=== PATIENT | male | born 1985 | race Caucasian/White ===

== ENCOUNTER 2019-06-21 09:39 | Emergency (ER) | payer BC, SELFPAY ==
--- NOTE | 2019-06-21 09:46 | ED.GENADULT ---
HPI - General Adult General Chief complaint: Abdominal Pain Stated complaint: anal pain/itch Time Seen by Provider: 06/21/19 09:57 Source: patient Mode of arrival: ambulatory Limitations: no limitations History of Present Illness HPI narrative: 33-year-old male patient [facility] with complaints of anal itching for the past 2 weeks. Patient states he is tried some [id number] Preparation H as well as some [id number] pinworm medication. Patient states it has not been helping. Patient denies any pain with bowel movements and states that it actually feels better because it feels like it is itching inside . Patient denies any blood in his stool that he is aware of. Patient states it did start that the itching was just at night but now it is all the time. Denies any abdominal pain, nausea, vomiting or diarrhea. Patient states he does tend to sweat a lot. Patient states he has been trying to clean himself and taking 2 showers a day as well as using wet wipes when he goes to the bathroom. Related Data Allergies Allergy/AdvReac Type Severity Reaction Status Date / Time No Known Allergies Allergy Unverified 06/21/19 09:47 Review of Systems Review of Systems: Narrative: CONSTITUTIONAL: Denies fever, chills, or sweats. EYES: Denies visual changes, redness, or discharge. ENT: Denies rhinorrhea, congestion, sore throat, or otalgia. CARDIOVASCULAR: Denies chest pain, palpitations, or edema. RESPIRATORY: Denies cough or dyspnea. GASTROINTESTINAL: Denies abdominal pain, nausea, vomiting, or diarrhea. GENITOURINARY: Denies dysuria or hematuria. SKIN: Denies rash or itching. Positive anal itching x2 weeks. MUSCULOSKELETAL: Denies back pain, joint pain, or myalgia. NEUROLOGIC: Denies headache, numbness, or weakness. PSYCHIATRIC: Denies anxiety or depression. [facility] Family History Family History Grandparent Family history of Parkinson's disease Carcinoma of colon Malignant neoplasm of prostate Family history of malignant neoplasm of breast Diabetes mellitus Mother Family history of malignant neoplasm of breast in first degree relative Other Family history of alcoholism Hypertension Social History Social History Smoking status: Never smoker Alcohol intake: current Comments At the time of my signature I agree with nursing past medical history, surgical, social, and family history. There is no relevant family history pertinent to the presenting complaint. Exam Narrative: Exam Narrative: GENERAL: Well-appearing, well-nourished, and in no acute distress. HEAD: Normocephalic, atraumatic. EYES: PERRLA and EOMI. ENT: Nares clear, no rhinorrhea or epistaxis. Mucous membranes moist. NECK: Supple. No lymphadenopathy CHEST: Clear to auscultation. No respiratory distress. HEART: Regular rate and rhythm. No murmur heard. Normal peripheral pulses. ABDOMEN: Soft, nontender, nondistended, normal active bowel sounds. RECTAL: No obvious rash noted around the rectum area. There is a small skin tag noted to the 1:00 area of the rectum. A digital rectal exam was performed. There does seem to be some internal hemorrhoids noted on palpation to the 1:00 area of the rectum. EXTREMITIES: Normal range of motion. No edema. SKIN: Warm, dry, no rash. NEURO: No focal deficits. Alert and oriented x3. Course Vital Signs Vital signs: Vital Signs Temperature 36.5 C 06/21/19 09:48 Pulse Rate 64 06/21/19 09:48 Respiratory Rate 20 06/21/19 09:48 Blood Pressure 131/88 06/21/19 09:48 Pulse Oximetry 99 06/21/19 09:48 Temperature 36.5 C 06/21/19 09:48 Pulse Rate 64 06/21/19 09:48 Respiratory Rate 20 06/21/19 09:48 Blood Pressure 131/88 06/21/19 09:48 Pulse Oximetry 99 06/21/19 09:48 Vital signs reviewed. The patient has been informed that they may have pre-hypertension or Hyperte
[2019-06-21 09:48] VITALS: BP 131/88; PULSE 64; RESP 20; TEMP 36.5; O2SAT 99
== END 2019-06-21 10:08 | disposition home or self-care (01) ==
PROVIDERS: Emergency Provider Nurse Practitioner Family; PCP Family Medicine
DX: K64.9 Unspecified hemorrhoids (principal)
CPT/HCPCS: 99213; G0463

== ENCOUNTER 2020-05-15 11:51 | Outpatient (NON) | payer BC, SELFPAY ==
[2020-05-15 23:32] LABS: SARS-CoV-2 RNA PCR Positive
== END 2020-05-15 11:52 ==
LOC: ANHCOVIDDT 11:52
PROVIDERS: PCP Family Medicine; Visit Provider Family Medicine
DX: U07.1 COVID-19 (principal)
CPT/HCPCS: C9803; U0003

== ENCOUNTER → 2021-10-09 08:41 | Outpatient (CLI) | payer BC, SELFPAY ==
--- NOTE | ~2021-10-09 | XR_ITS ---
EXAMINATION: XR lumbar spine min 4V DATE: 10/09/2021 09:43 INDICATION: Chronic low back pain. TECHNIQUE: 5 views of lumbar spine were obtained. COMPARISON: None. FINDINGS: Bone alignment is normal. Vertebral body heights and intervertebral disc heights are normal . There is multilevel mild facet joint osteoarthritis. IMPRESSION: 1. Mild lumbar facet joint osteoarthritis. Reviewed, dictated and finalized at location A.
--- NOTE | ~2021-10-09 | XR_ITS ---
EXAMINATION: XR cervical spine 4-5V DATE: 10/09/2021 09:43 INDICATION: Chronic neck pain. TECHNIQUE: 5 views of cervical spine including standing views were obtained. COMPARISON: None. FINDINGS: There is 11 degrees levoscoliosis of cervicothoracic spine. There is mild kyphosis of cervi jany spine. Vertebral body heights are normal. There is mildly decreased disc height at C4-C5 and C5-C 6. The facet joints are unremarkable. IMPRESSION: 1. Mild cervical spondylosis. 2. Cervicothoracic levoscoliosis. Reviewed, dictated and finalized at location A.
== END ==
PROVIDERS: PCP Family Medicine; Visit Provider Family Medicine
DX: M47.816 Spondylosis without myelopathy or radiculopathy, lumbar region (principal); M47.812 Spondylosis without myelopathy or radiculopathy, cervical region; M41.9 Scoliosis, unspecified
CPT/HCPCS: 72050; 72110

== ENCOUNTER 2024-08-10 07:17 | Emergency (ER) | payer BC, SELFPAY ==
--- OUTSIDE RECORDS SUMMARY | 2024-08-10 07:22 | XMS_ITS | Clinical Summary ---
Author Organization [facility] Address [address] [address] Care Team Providers Care Research Phlebotomist Name Role Phone Unavailable Primary Care Provider Unavailabl e Source Comments [facility],non-owned Affiliates and Associated Physician Practices is amultiple site organization consisting of ambulatory clinics and hospital sitesin [place], [place], [place] and [place]. This disclosure is being madepursuant to the Care Everywhere program and may not contain all information available regarding this patient. Last updated 18.[facility] Immunizations Name Administration Dates Next Due INFLUENZA VACCINE, QUADR. (F LUZONE; FLULAVAL; FLUARIX; AFLURIA QUADRIVALENT; 6MO+), 0.5 ML (IIV4) 02/22/2019 TDAP (7yrs+) 02/22/2019 Social History Tobacco Use Types Packs/Day Years Used Date Smoking Tobacco: Never Assessed Sex and Gender Information Value Date Recorded Sex Assigned at Not on file Gender Identity Not on file Sexual Orientation Not on file Plan of Treatment Health Maintenance Due Date Last Done Comments HIV SCREENING 2000 HEPATITIS C SCREENING 08/20/2003 HEPATITIS B VACCINE (1 of 3 - 19+ 3-dose series) 2004 COVID-19 VACCINE (2023-2 5 season) 2024 INFLUENZA VACCINE (#1) 2024 02/22/2019 DEPRESSION SCREENING 05/09/2024 DTAP/TDAP/TD VACCINES (2 - T d or Tdap) 02/22/2029 02/22/2019 ZOSTER VACCINE (1 of 2) 08/25/2035 HIB VACCINE Aged Out No longer eligi ble based on patient's age to complete this topic HPV VACCINE Aged Out No longer eligi ble based on patient's age to complete this topic MENINGOCOCCAL (Group B) VACC INE SHARED DECISION-MAKING Aged Out No longer eligibl e based on patient's age to complete this topic MENINGOCOCCAL GROUPS A/C/Y/W VACCINE Aged Out No longer eligible b ased on patient's age to complete this topic PNEUMOCOCCAL VACCINE Aged Out No long er eligible based on patient's age to complete this topic
[2024-08-10 07:27] VITALS: BP 142/96; PULSE 80; RESP 16; TEMP 36.7; O2SAT 100
--- NOTE | 2024-08-10 07:38 | ED_ITS ---
HPI - General Adult General Chief complaint: Nausea/Vomiting/Diarrhea Stated complaint: n/v/d, rapid weight loss, YL Time Seen by Provider: 08/10/24 07:20 History of Present Illness HPI narrative: 38-year-old male presents to the emergency department for evaluation for diarrhea and weight loss. Patient has also developed recent nausea and vomiting. Patient has been taking semaglutide. Patient took a break from the medication and the symptoms did begin to improve. When patient restarted the medication the symptoms worsened again. Related Data Allergies Allergy/AdvReac Type Severity Reaction Status Date / Time No Known Allergies Allergy Verified 08/10/24 07:18 Review of Systems 2 Review of Systems: All systems reviewed & are unremarkable except as noted in HPI and below PMFSH Family History Family History Grandparent Family history of Parkinson's disease Carcinoma of colon Malignant neoplasm of prostate Family history of malignant neoplasm of breast Diabetes mellitus Mother Family history of malignant neoplasm of breast in first degree relative Other Family history of alcoholism Hypertension Social History Social History Smoking status: Never smoker Alcohol intake: current Exam 2 Narrative: APPEARANCE: Well appearing, no pain, no distress, well-nourished. HEAD: normocephalic, atraumatic. EYES: PERRLA/EOMI, conjunctivae clear. NOSE: Normal no drainage EARS:TMS clear with good light reflex. THROAT: Pharynx clear, no exudate. NECK: Supple. No adenopathy, no masses. RESPIRATORY: Airway patent, respirations nonlabored. Clear to auscultation bilaterally, no rales, rhonchi, wheezing. CARDIOVASCULAR: Regular rate and rhythm without murmurs rubs or gallops. ABDOMINAL: Soft, nontender, nondistended, normal bowel sounds MUSCULOSKELETAL: Moves all extremities. Strength/ROM intact, No edema, No calf tenderness. NEURO: Alert. Cranial nerves II through XII intact. Grossly intact SKIN: Warm, dry. Normal Color Course Vital Signs Vital signs: Vital Signs Temperature 98.0 F 08/10/24 07:27 Pulse Rate 80 08/10/24 07:27 Respiratory Rate 16 08/10/24 07:27 Blood Pressure 142/96 H 08/10/24 07:27 Pulse Oximetry 100 08/10/24 07:27 Oxygen Delivery Room Air 08/10/24 07:27 Temperature 98.0 F 08/10/24 07:27 Pulse Rate 68 08/10/24 09:01 Respiratory Rate 15 08/10/24 09:01 Blood Pressure 119/76 08/10/24 09:01 Pulse Oximetry 94 08/10/24 09:01 Oxygen Delivery Room Air 08/10/24 07:27 Medical Decision Making [facility] Narrative Medical decision making narrative: 38-year-old male presents emergency department for evaluation for intermittent nausea vomiting diarrhea. Patient is on semaglutide and I suspect this is the underlying etiology for his symptoms. Patient is currently afebrile with no leukocytosis and hemoglobin of 18. Patient has no significant abnormalities on his CMP UA was negative for infection. Patient was advised to follow a clear liquid diet for the next 1-3 days. Patient is provided Reglan for nausea control. Patient was advised to stop the semaglutide. Differential Diagnosis Differential Diagnosis: Colitis, diverticulitis, enteritis, viral etiology, adverse reaction to medication Vital Signs Vital Signs: Vital Signs Temperature 98.0 F 08/10/24 07:27 Pulse Rate 80 08/10/24 07:27 Respiratory Rate 16 08/10/24 07:27 Blood Pressure 142/96 H 08/10/24 07:27 Pulse Oximetry 100 08/10/24 07:27 Oxygen Delivery Room Air 08/10/24 07:27 Temperature 98.0 F 08/10/24 07:27 Pulse Rate 68 08/10/24 09:01 Respiratory Rate 15 08/10/24 09:01 Blood Pressure 119/76 08/10/24 09:01 Pulse Oximetry 94 08/10/24 09:01 Oxygen Delivery Room Air 08/10/24 07:27 Lab Data Lab results reviewed: Yes I reviewed the patient's lab results. 08/10/24 07:45 08/10/24 07:45 Labs: Lab Results 08/10/24 08/10/24 Range/Units 07:45 07:59 WBC 6.9 (4.5-10.0) K/mm3 RBC 5.80 (4.6-6.20) M/mm3 Hgb 18.0 (14.0-18.0) g/dL Hct 51.7 (42.0-52.0) % MCV 89.1 (80-100) fl MCH 31.0 (26-34) pg MCHC 34.8 (32-36) g/dl RDW 11.7 (11.5-14.5) % Plt Count 235 (150-375) k/mm3 MPV 10.5 H (7.4-10.4) fl Immature Gran % (Auto) 0.3 (0-0.5) % Neut % (Auto) 74.0 H (45.5-73.1) % Lymph % (Auto) 17.2 L (18.3-44.2) % [place] % (Auto) 5.9 (2.6-8.5) % Eos % (Auto) 2.0 (0-4.4) % Baso % (Auto) 0.6 (0.2-1.2) % Lymph # (Auto) 1.19 (0.9-3.2) K/mm3 [place] # (Auto) 0.4 (0.1-0.6) K/mm3 Eos # (Auto) 0.1 (0-0.3) K/mm3 Baso # (Auto) 0.0 (0.0-0.1) K/mm3 Abs Immat Gran (auto) 0.02 (0.00-0.031) K/mm3 Absolute Neuts (auto) 5.1 (1.3-6.7) K/mm3 Absolute Nucleated RBC 0.000 (0.0-0.012) K/mm3 Band Neutrophils % Not Reportable Nucleated RBC % 0.0 (0.0-0.2) % Atypical Lymphocytes Present Platelet Estimate Adequate (Adequate) Schistocytes None seen Sodium 139 (137-145) mmol/L Potassium 4.0 (3.4-5.0) mmol/L Chloride 99 (98-107) mmol/L Carbon Dioxide 30 (22-30) mmol/L Anion Gap 10 (4-12) mmol/L BUN 14 (9-20) mg/dL Creatinine 1.26 (0.7-1.3) mg/dL Estim Creat Clear Calc 90 ml/min Estimated GFR > 60 (59 - ) Glucose 101 (65-110) mg/dL Calcium 9.4 (8.4-10.2) mg/dL Total Bilirubin 0.7 (0.2-1.3) mg/dL AST 21 (17-59) U/L ALT 25 (6-50) U/L Alkaline Phosphatase 79 (38-126) U/L Total Protein 8.0 (6.3-8.2) g/dL Albumin 4.7 (3.5-5.1) g/dL Lipase 126 (23-300) U/L Urine Color Dark yellow (Yellow) Urine Appearance Clear (Clear) Urine pH 6.0 (5.0-9.0) Ur Specific [place] 1.030 (1.001-1.035) Urine Protein 1+ H (Negative) mg/dL Urine Glucose (UA) Negative (Negative) mg/dL Urine Ketones 1+ H (Negative) mg/dL Ur Blood (Man) Negative (Negative) Urine Nitrate Negative (Negative) Urine Bilirubin 1+ H (Negative) Urine Urobilinogen 1.0 (<2.0) mg/dL Leukocyte Esterase Rfl Negative (Negative) MRAY JO/UL Urine RBC 0-2 (0-2) /hpf Urine WBC 0-5 (0-3) /hpf Ur Squamous Epith Cells None seen (Few) /hpf Urine Bacteria None seen /hpf Urine Casts 0-2 C. difficile (PCR) Negative (NEGATIVE) Discharge Plan Discharge Clinical Impression: Nausea & vomiting Patient Disposition: Still a Patient Condition: Stable Instructions: Clear Liquid Diet (ED), Acute Nausea and Vomiting (ED) Additional Instructions: Reglan as needed for nausea and vomiting. Clear liquid diet for the next 1-3 days. Stop the semaglutide. Have close follow-up with your primary care physician. If you have any worsening symptoms and please call or return to the emergency department. Patient Language: Cypriot Prescriptions: New metoclopramide HCl [Reglan] 10 mg tablet 10 mg PO Q6H PRN (Reason: nausea and vomiting) Qty: 14 0RF No Action hydrocortisone 2.5 % cream with perineal applicator 1 applic RECTAL HS PRN (Reason: hemorrhoids) Qty: 30 0RF nystatin 100,000 unit/gram powder 1 applic TOPICAL TID Qty: 30 0RF Follow-up/Referrals: Tim,Ignacio Reynolds MD [Non-Staff] -
--- OUTSIDE RECORDS SUMMARY | 2024-08-10 07:42 | XMS_ITS | Clinical Summary ---
Author Organization [facility] Address [address] [place] [address] Care Team Providers Care Maori Liaison Adviser Name Role Phone Unavailable Primary Care Provider Unavailabl e Source Comments [facility],non-owned Affiliates and Associated Physician Practices is amultiple site organization consisting of ambulatory clinics and hospital sitesin [place], [place], [place] and [place]. This disclosure is being madepursuant to the Care Everywhere program and may not contain all information available regarding this patient. Last updated 18.[facility] Immunizations Name Administration Dates Next Due INFLUENZA [...]
[2024-08-10 07:52] LABS: Basophils Percent Auto 0.6 % (0.2-1.2); Eosinophils Absolute Auto 0.1 K/mm3 (0-0.3); Hematocrit 51.7 % (42.0-52.0); Immature Granulocyte Absolute 0.02 K/mm3 (0.00-0.031); Immature Granulocyte Percent A 0.3 % (0-0.5); Lymphocytes Absolute Auto 1.19 K/mm3 (0.9-3.2); Lymphocytes Percent Auto 17.2 % (18.3-44.2); Mean Corpuscular HGB Conc 34.8 g/dl (32-36); Mean Corpuscular Volume 89.1 fl (80-100); Mean Platelet Volume 10.5 fl (7.4-10.4); Monocytes Absolute Auto 0.4 K/mm3 (0.1-0.6); Monocytes Percent Auto 5.9 % (2.6-8.5); Neutrophils Absolute Auto 5.1 K/mm3 (1.3-6.7); Platelet Count Result 235 k/mm3 (150-375); Red Cell Distribution Width 11.7 % (11.5-14.5); White Blood Count 6.9 K/mm3 (4.5-10.0)
[2024-08-10] MEDS: LACTATED RINGERS 1,000 ML 999 ML IV CONT (08:00)
[2024-08-10] MEDS: METOCLOPRAMIDE HCL INJ 10 MG/2 ML VIAL IV PUSH (08:00)
[2024-08-10] MEDS: diphenhydrAMINE HCl INJ 50 MG/ML VIAL 25 MG IV PUSH (08:00)
[2024-08-10 08:05] VITALS: BP 138/83; PULSE 80; RESP 17; O2SAT 96
[2024-08-10 08:12] LABS: Alanine Aminotransferase 25 U/L (6-50); Albumin Level 4.7 g/dL (3.5-5.1); Alkaline Phosphatase 79 U/L (38-126); Anion Gap 10 mmol/L (4-12); Aspartate Amino Transferase 21 U/L (17-59); Bilirubin,Total 0.7 mg/dL (0.2-1.3); Blood Urea Nitrogen 14 mg/dL (9-20); Calcium 9.4 mg/dL (8.4-10.2); Carbon Dioxide 30 mmol/L (22-30); Chloride 99 mmol/L (98-107); Estimated CRCL calculation 90 ml/min; Estimated Glomerular Filt Rate > 60; Glucose 101 mg/dL (65-110); Lipase 126 U/L (23-300); Sodium 139 mmol/L (137-145)
[2024-08-10 08:16] VITALS: BP 127/83; PULSE 78; RESP 15; O2SAT 94
[2024-08-10 08:17] LABS: Add Urine Microscopic? YES; Appearance Urine Clear (Clear); Bacteria Urine None Seen /hpf; Bilirubin Urine 1+ (Negative); Blood Urine Negative (Negative); Color Urine Dark Yellow (Yellow); Glucose Urine UA Negative (Negative); Ketones Urine 1+ mg/dL (Negative); Leukocyte Esterase Ur Negative LEU/UL (Negative); Nitrate Urine Negative (Negative); Non Pathogenic Casts 0-2; Protein Urine 1+ mg/dL (Negative); RBC Urine 0-2 /hpf (0-2); Squamous Epithelial Cell Urine None Seen /hpf (Few); WBC Urine 0-5 /hpf (0-3)
[2024-08-10 08:31] VITALS: BP 129/78; PULSE 80; RESP 26; O2SAT 94
[2024-08-10 08:32] LABS: Platelet Estimate Adequate (Adequate)
[2024-08-10 08:33] LABS: Atypical Lymphocytes Present; Schistocytes None Seen
[2024-08-10 08:46] VITALS: BP 125/80; PULSE 70; RESP 20; O2SAT 93
[2024-08-10 09:01] VITALS: BP 119/76; PULSE 68; RESP 15; O2SAT 94
[2024-08-10 09:30] LABS: Toxigenic C. Diff NEGATIVE (NEGATIVE)
== END 2024-08-10 09:45 | disposition home or self-care (01) ==
PROVIDERS: Emergency Provider Emergency Medicine
DX: R11.2 Nausea with vomiting, unspecified (principal)
CPT/HCPCS: 36415; 80053; 81001; 83690; 85025; 87045; 87427; 87449; 87493; 96361; 96374; 96375; 99284; J1200; J2765; J7120

== ENCOUNTER 2024-08-15 12:50 | Outpatient (CLI) | payer BC, SELFPAY ==
--- NOTE | ~2024-08-15 | CT_ITS ---
CLINICAL INDICATION: Abdominal pain, bloating, vomiting and diarrhea COMPARISON: None. TECHNIQUE: Multiple contiguous axial images of the abdomen and pelvis were performed following the ad ministration of with 100 mL Omnipaque-350 intravenous contrast The dose-length product (DLP) was 935.88 mGy-cm. Automated exposure control and iterative reconstruction technique were employed. FINDINGS/OBSERVATIONS: Visualized lower thorax: The bilateral lung bases are clear. The heart is of normal size, without pericardial effusion. Small hiatal hernia is present. Liver: The liver demonstrates homogeneous enhancement and is enlarged measuring 19 cm in longitudinal dimens ion. Gallbladder and biliary system: The gallbladder is only minimally distended, and otherwise unremarkable. Pancreas: The pancreas enhances homogeneously without ductal dilatation. Spleen: The spleen enhances homogeneously and is enlarged measuring 14 cm in longitudinal dimension. Kidneys: The bilateral kidneys enhance symmetrically without hydronephrosis or renal calculi. Adrenal glands: Unremarkable. Gastrointestinal tract: The colon is fluid-filled, as is the distal small bowel. No significant mural thickening or surroundi ng inflammatory change is present. Appendix: The air-filled appendix is of normal caliber (axial series, images 83 through 94) Vasculature: Unremarkable. Lymph nodes: No pathologically enlarged or morphologically suspicious lymph nodes within the retroperitoneum or at the root of the mesentery. Pelvic structures: The bladder is only minimally distended, and otherwise unremarkable. The prostate gland is not enlarged. Body wall and musculoskeletal: Small fat-containing umbilical hernia. No significant degenerative disease within the lower thoracic or lumbosacral spine. IMPRESSION: Hepatosplenomegaly. Findings suggesting a diarrheal-type illness, as detailed above. No acute intra-abdominal findings, as detailed above. Reviewed, dictated and finalized at location A.
== END 2024-08-15 12:51 | disposition home or self-care (01) ==
LOC: MICIMG 12:50
PROVIDERS: PCP Nurse Practitioner Family; Visit Provider Nurse Practitioner Family
DX: R14.0 Abdominal distension (gaseous) (principal); R11.2 Nausea with vomiting, unspecified; R19.7 Diarrhea, unspecified; R16.2 Hepatomegaly with splenomegaly, not elsewhere classified
CPT/HCPCS: 74177; Q9967

== ENCOUNTER 2025-03-05 12:58 | Outpatient (CLI) | payer BC, SELFPAY ==
--- NOTE | ~2025-03-05 | XR_ITS ---
XR lumbar spine 2-3V Indication: M54.42 - Lumbago with sciatica, left side, X 3 MONTHS Comparison: None Findings: The vertebral heights are intact. No fracture or subluxation. The disc heights are intact. Soft tissues unremarkable Impression: No acute abnormality. Reviewed, dictated and finalized at location P. Impression: No acute abnormality.
--- NOTE | ~2025-03-05 | XR_ITS ---
EXAMINATION: XR hand LT min 3V, 03/05/2025 13:05 CDT HISTORY: S69.92XA - Unspecified injury of left wrist, hand and fin... COMPARISON: No comparisons available. Findings: No acute fracture or malalignment. No significant degenerative changes. Soft tissues unremarkable. Impression: No acute fracture or malalignment. Reviewed, dictated and finalized at location P. Impression: No acute fracture or malalignment.
--- OUTSIDE RECORDS SUMMARY | 2025-03-05 14:50 | XMS_ITS | Clinical Summary ---
Author Organization [facility] Address [address] [place] [address] Care Team Providers Care Registry Rn Name Role Phone Unavailable Primary Care Provider Unavailabl e Source Comments [facility],non-owned Affiliates and Associated Physician Practices is amultiple site organization consisting of ambulatory clinics and hospital sitesin [place], [place], [place] and [place]. This disclosure is being madepursuant to the Care Everywhere program and may not contain all information available regarding this patient. Last updated 18.[facility] [employer] Immunizations Immunization Administration Dates Next Due INFLUENZA VACCINE, QUADR. (F LUZONE; FLULAVAL; FLUARIX; AFLURIA QUADRIVALENT; 6MO+), 0.5 ML (IIV4) 02/22/2019 TDAP (7yrs+) 02/22/2019 Social History Tobacco Use Types Packs/Day Years Used Date Smoking Tobacco: Never Assessed Sex and Gender Information Value Date Recorded Sex Assigned at Not on file Legal Sex Male 12:20 PM CDT Gender Identity Not on file Sexual Orientation Not on file Plan of Treatment Health Maintenance Due Date Last Done Comments HIV SCREENING 2000 HEPATITIS C SCREENING 08/20/2003 HEPATITIS B VACCINE (1 of 3 - 19+ 3-dose series) 2004 HPV VACCINE (1 - 3-dose SCDM series) 2012 DEPRESSION SCREENING 05/09/2024 COVID-19 VACCINE ( - 2023-2 5 season) 2025 INFLUENZA VACCINE (#1) 2025 02/22/2019 DTAP/TDAP/TD VACCINES (2 - T d or [...] on patient's age to complete this topic Insurance [facility]
== END 2025-03-05 12:59 | disposition home or self-care (01) ==
PROVIDERS: PCP Nurse Practitioner Family; Visit Provider Nurse Practitioner Family
DX: M54.42 Lumbago with sciatica, left side (principal); M54.41 Lumbago with sciatica, right side; G89.29 Other chronic pain; S69.92XA Unspecified injury of left wrist, hand and finger(s), initial encounter; M79.642 Pain in left hand; R29.898 Other symptoms and signs involving the musculoskeletal system; X58.XXXA Exposure to other specified factors, initial encounter
CPT/HCPCS: 72100; 73130

== ENCOUNTER 2025-04-09 06:50 | Outpatient (CLI) | payer BC, SELFPAY ==
--- NOTE | ~2025-04-09 | MR_ITS ---
EXAMINATION: MR hand LT wo con DATE: 04/09/2025 07:29 INDICATION: Left hand and wrist injury with pain in the region of the third metacarpal. TECHNIQUE: Magnetic resonance imaging (MRI) of the left hand was performed without intravenous contrast to include the metacarpals and digits. Sequences included sagittal, coronal, and axial T1-weighted FSE and T2-weighted FS FSE. A marker was placed at the patient's reported site of maximal pain. COMPARISON: Left hand radiographs dated 03/05/2025 FINDINGS: The marker indicating the site of maximal pain is positioned dorsal to the third metacarpal. Bone alignment is normal. There is normal bone marrow signal throughout with no reactive edema, fracture or pathologic marrow replacing process. No cortical erosions or periostitis. Joint spaces are normal. Small joint effusion and mild synovitis at the and dorsal at the radial palmar and ulnar palmar recess of the third metacarpophalangeal joint. The visualized portion of the flexor and extensor tendons are normal. No tenosynovitis. The collateral ligament complexes at the metacarpophalangeal and interphalangeal joints are normal. Intrinsic musculature of the hand appears normal. IMPRESSION: 1. Nonspecific small joint effusion and mild synovitis at the third metacarpophalangeal joint without evident joint space narrowing, cortical erosion or associated marrow or surrounding soft tissue edema. Otherwise unremarkable MRI of the left hand. Reviewed, dictated and finalized at location A. ER HAND IMPRESSION: 1. Nonspecific small joint effusion and mild synovitis at the third metacarpoph alangeal joint without evident joint space narrowing, cortical erosion or assoc iated marrow or surrounding soft tissue edema. Otherwise unremarkable MRI of th e left hand.
== END 2025-04-09 06:51 | disposition home or self-care (01) ==
PROVIDERS: PCP Nurse Practitioner Family; Visit Provider Nurse Practitioner Family
DX: S69.92XA Unspecified injury of left wrist, hand and finger(s), initial encounter (principal); R29.898 Other symptoms and signs involving the musculoskeletal system; M79.642 Pain in left hand; X58.XXXA Exposure to other specified factors, initial encounter
CPT/HCPCS: 73218

== ENCOUNTER 2025-04-10 07:10 | Outpatient (CLI) | payer BC, SELFPAY ==
--- NOTE | ~2025-04-10 | MR_ITS ---
EXAMINATION: MR lumbar spine wo con DATE: 04/10/2025 07:38 INDICATION: Lumbago with sciatica, left side. TECHNIQUE: Magnetic resonance imaging (MRI) of the lumbar spine was performed without intravenous contrast. Sequences included sagittal T2-weighted FSE, sagittal T2-weighted FS FSE, sagittal T1-weighted FSE, and axial T2-weighted FSE. COMPARISON: Lumbar spine radiographs 03/05/2025 FINDINGS: Alignment is normal. Vertebral body heights are normal. There is mildly decreased disc height at L5-S1. The distal spinal cord signal intensity is normal. The conus medullaris is at T12-L1. The following disc levels are specifically discussed: L1-L2: The disc does not extend beyond the endplate margin. There is mild bilateral facet joint osteoarthritis. There is no neural foraminal stenosis. There is no central canal stenosis. L2-L3: The disc does not extend beyond the endplate margin. There is mild bilateral facet joint osteoarthritis. There is no neural foraminal stenosis. There is no central canal stenosis. L3-L4: The disc does not extend beyond the endplate margin. There is mild bilateral facet joint osteoarthritis. There is no neural foraminal stenosis. There is no central canal stenosis. L4-L5: The disc does not extend beyond the endplate margin. There is mild bilateral facet joint osteoarthritis. There is no neural foraminal stenosis. There is no central canal stenosis. L5-S1: The disc is bulging and has an annular fissure. There is mild right and moderate left facet joint osteoarthritis. There is mild bilateral neural foraminal stenosis. There is mild central canal stenosis. IMPRESSION: 1. Mild lumbar spondylosis. Reviewed, dictated and finalized at location E. NESS LAW TEACHER IMPRESSION: 1. Mild lumbar spondylosis.
--- OUTSIDE RECORDS SUMMARY | 2025-04-10 07:13 | XMS_ITS | Clinical Summary ---
Author Organization [facility] Address [address] [place] [address] Care Team Providers Care Senior Statistician Name Role Phone Unavailable Primary Care Provider Unavailabl e Source Comments [facility],non-owned Affiliates and Associated Physician Practices is amultiple site organization consisting of ambulatory clinics and hospital sitesin [place], [place], [place] and [place]. This disclosure is being madepursuant to the Care Everywhere program and may not contain all information available regarding this patient. Last updated 18.[facility] [employer] Immunizations Immunization Administration Dates Next Due INFLUENZA [...] series) 2012 DEPRESSION SCREENING 05/09/2024 COVID-19 VACCINE (1 - 2024-2 6 season) 2025 INFLUENZA VACCINE (#1) 2025 02/22/2019 [...] patient's age to complete this topic Insurance [facility]
== END 2025-04-10 07:11 | disposition home or self-care (01) ==
PROVIDERS: PCP Nurse Practitioner Family; Visit Provider Nurse Practitioner Family
DX: M54.42 Lumbago with sciatica, left side (principal); M54.41 Lumbago with sciatica, right side; M89.29 Other disorders of bone development and growth, multiple sites; M47.896 Other spondylosis, lumbar region
CPT/HCPCS: 72148